=== PATIENT | female | born 1990 | race Two or more races ===

== ENCOUNTER 2020-04-28 06:39 | Day surgery (SDC) | payer OTHER | END 2020-04-28 18:10 | disposition home or self-care (01) | LOC: CIR.AMB 06:39 | PROVIDERS: ATTEND Specialist | DX: R87.613 High grade squamous intraepithelial lesion on cytologic smear of cervix (HGSIL) (principal); Z20.828 Contact with and (suspected) exposure to other viral communicable diseases ==

== ENCOUNTER 2021-07-12 09:02 | Outpatient (CLI) | payer OTHER | END 2021-07-12 14:33 | disposition home or self-care (01) | LOC: RX STUDY 09:02 | PROVIDERS: ATTEND Specialist | DX: N92.1 Excessive and frequent menstruation with irregular cycle (principal); R10.2 Pelvic and perineal pain ==

== ENCOUNTER 2023-03-12 10:32 | Emergency (ER) | payer OTHER ==
[~2023-03-12] VITALS: Ht 152.4 cm; Wt 66.7 kg
[2023-03-12] MEDS ORDERED: PRENATAL + DHA1 EAC1 (11:04)
[2023-03-12] MEDS ORDERED: FOLIC ACID20 MG (11:04)
[2023-03-12] MEDS ORDERED: PROMETRIUM200 MG (11:04)
== END 2023-03-12 14:26 | disposition home or self-care (01) ==
LOC: ER 10:32
DX: O23.41 Unspecified infection of urinary tract in pregnancy, first trimester (principal); N39.0 Urinary tract infection, site not specified; Z3A.12 12 weeks gestation of pregnancy

== ENCOUNTER 2023-03-14 08:34 | Outpatient (CLI) | payer OTHER ==
[~2023-03-14 08:34] MED LIST: FOLIC ACID20 MG; PRENATAL + DHA1 EAC1; PROMETRIUM200 MG
== END 2023-03-14 09:55 | disposition home or self-care (01) ==
LOC: PRENATAL 08:34
PROVIDERS: ATTEND Obstetrics & Gynecology Maternal & Fetal Medicine
DX: O36.80X0 Pregnancy with inconclusive fetal viability, not applicable or unspecified (principal); O34.40 Maternal care for other abnormalities of cervix, unspecified trimester; Z3A.12 12 weeks gestation of pregnancy

== ENCOUNTER 2023-04-06 13:33 | Emergency (ER) | payer OTHER ==
[~2023-04-06] VITALS: Ht 152.4 cm; Wt 65.8 kg
== END 2023-04-06 17:52 | disposition home or self-care (01) ==
LOC: ER 13:33
DX: O98.512 Other viral diseases complicating pregnancy, second trimester (principal); U07.1 COVID-19; Z3A.00 Weeks of gestation of pregnancy not specified

== ENCOUNTER 2023-05-12 12:44 | Outpatient (CLI) | payer OTHER | END 2023-05-12 14:08 | disposition home or self-care (01) | LOC: PRENATAL 12:44 | PROVIDERS: ATTEND Obstetrics & Gynecology Maternal & Fetal Medicine | DX: O35.3XX0 Maternal care for (suspected) damage to fetus from viral disease in mother, not applicable or unspecified (principal); O34.40 Maternal care for other abnormalities of cervix, unspecified trimester; Z3A.20 20 weeks gestation of pregnancy ==

== ENCOUNTER → 2023-08-04 12:59 | Outpatient (CLI) | payer OTHER | END | disposition home or self-care (01) | LOC: PRENATAL 12:59 | PROVIDERS: ATTEND Obstetrics & Gynecology Maternal & Fetal Medicine | DX: O26.849 Uterine size-date discrepancy, unspecified trimester (principal); O36.8199 Decreased fetal movements, unspecified trimester, other fetus; O34.40 Maternal care for other abnormalities of cervix, unspecified trimester; Z3A.32 32 weeks gestation of pregnancy ==

== ENCOUNTER 2023-09-09 08:15 | Inpatient (IN) | payer OTHER ==
[~2023-09-09] VITALS: Ht 152.4 cm; Wt 3.2 kg
[2023-09-23 09:24] LABS: ALBUMIN 2.7 gm/dL (3.4-5.0); BILIRUBIN TOTAL 0.22 mg/dL (0.3-1.2); CALCIUM 8.7 mg/dL (8.5-10.1); CREATININE SERUM 0.33 mg/dL (0.55-1.02); GFR 229.51; GLOBULINA 3.7 G/DL (2.4-3.5); POTASSIUM 3.86 mEq/L (3.5-5.1); TOTAL PROTEIN 6.4 gm/dL (6.4-8.2)
[2023-09-24 02:35] LABS: HEMATOCRIT 31.2 % (36.0-45.00); HEMOGLOBIN 10.3 g/dL (12.0-15.00); MEAN CELL VOLUME 86.9 fL (80.00-100.00); MEAN CORPUSCULAR HEMOGLOBIN 28.8 pg (27.00-32.0); MEAN CORPUSCULAR HGB CONC 33.2 g/dl (32.0-36.0); PLATELET COUNT 297 K/uL (150-450); RED BLOOD COUNT 3.59 M/uL (4.00-6.00); RED CELL DISTRIBUTION WIDTH 14.9 % (11.5-14.5)
[2023-09-26] MEDS ORDERED: IBUPROFEN800 MG PO (08:31)
== END 2023-09-26 15:06 | disposition home or self-care (01) | DRG 788 ==
LOC: LDR 09-23 08:01 → OB/GYN 09-23 08:01
PROVIDERS: ADMIT Specialist; ATTEND Specialist
PROC: 4A1HXCZ Monitoring of Products of Conception, Cardiac Rate, External Approach (ICD-10-PCS; 2023-09-23)
PROC: 10D00Z1 Extraction of Products of Conception, Low, Open Approach (ICD-10-PCS; principal; 2023-09-23 13:00)
DX: O33.8 Maternal care for disproportion of other origin (principal); Z3A.39 39 weeks gestation of pregnancy; Z37.0 Single live birth; Z20.822 Contact with and (suspected) exposure to COVID-19

== ENCOUNTER 2023-09-23 03:33 | Outpatient (CLI) | payer OTHER ==
[2023-09-23 03:44] LABS: PH,URINE 5.5 (5.0-8.0); URINE APPEARANCE Clear; URINE BILIRRUBIN Negative (NEGATIVE); URINE BLOOD Negative; URINE COLOR Yellow; URINE GLUCOSE Negative (NEGATIVE); URINE LEUKOCYTE Trace; URINE NITRATE Negative; URINE PROTEIN Negative (NEGATIVE); URINE UROBILINOGEN 0.2 E.U./dl
[2023-09-23 03:45] LABS: MEAN CELL VOLUME 85.4 fL (80.00-100.00); MEAN CORPUSCULAR HEMOGLOBIN 28.3 pg (27.00-32.0); MEAN CORPUSCULAR HGB CONC 33.1 g/dl (32.0-36.0); PLATELET COUNT 298 K/uL (150-450); RED BLOOD COUNT 3.98 M/uL (4.00-6.00)
[2023-09-23] MEDS ORDERED: RINGERS SOLUTION,LACTATED 1,000 ML IV SCH (03:45)
[2023-09-23 03:47] LABS: HEMOGLOBIN 11.3 g/dL (12.0-15.00); URINE BACTERIA 450.9 uL (0.0-1933); URINE EPITHELIAL CELLS 41.5 uL (0.0-38.8); URINE WBC 23.8 uL (0.0-23.2)
[2023-09-23 03:56] LABS: URINE RBC 1.4 uL (0.0-20.8)
[2023-09-23 04:05] LABS: INR 0.94; PARTIAL THROMBOPLASTIN TIME 24.3 SECONDS (22.0-34.0); PROTHROMBIN TIME 9.9 SECONDS (9.0-11.5)
== END 2023-09-23 08:01 | disposition still patient (30) ==
LOC: OBS/DEL 03:33
PROVIDERS: Obstetrics & Gynecology; ATTEND Specialist
DX: O75.89 Other specified complications of labor and delivery (principal)